=== PATIENT | female | born 1955 | race Native Hawaiian/Other Pacific Islander ===

== ENCOUNTER 2018-01-05 13:41 | Outpatient (CLI) | payer OTHER ==
[~2018-01-05 13:41] MED LIST: ADDERALL XR20 MG PO; AMBIEN CR12.5 M1 PO; CETIRIZINE10 MG PO; CLONAZEP ODT1 MG PO; LAMOTRIGINE200 MG PO; LOPRESSOR100 MG PO
== END 2018-01-05 20:02 | disposition home or self-care (01) ==
LOC: CT 13:41
DX: J01.91 Acute recurrent sinusitis, unspecified (principal)

== ENCOUNTER 2019-11-24 15:42 | Outpatient (CLI) | payer OTHER | END 2019-11-24 20:49 | disposition home or self-care (01) | LOC: CT 15:42 | DX: R59.9 Enlarged lymph nodes, unspecified (principal) ==

== ENCOUNTER 2019-12-22 11:33 | Outpatient (CLI) | payer OTHER | END 2019-12-22 19:19 | disposition home or self-care (01) | LOC: MAMMO 11:33 | DX: R06.02 Shortness of breath (principal); Z12.31 Encounter for screening mammogram for malignant neoplasm of breast ==

== ENCOUNTER 2021-01-03 09:03 | Outpatient (CLI) | payer OTHER ==
[2021-01-03 10:21] LABS: PLATELET COUNT 209 K/uL (152-353)
[2021-01-03 10:37] LABS: POTASSIUM 4.2 mmol/L (3.6-5.2)
== END 2021-01-03 22:35 | disposition home or self-care (01) ==
LOC: LABW 09:03
PROVIDERS: ATTEND Nurse Practitioner Family
DX: R10.9 Unspecified abdominal pain (principal); R11.0 Nausea; R11.10 Vomiting, unspecified; F41.9 Anxiety disorder, unspecified; F51.01 Primary insomnia; I10 Essential (primary) hypertension; K21.9 Gastro-esophageal reflux disease without esophagitis; G89.29 Other chronic pain; E03.9 Hypothyroidism, unspecified; E55.9 Vitamin D deficiency, unspecified
CPT/HCPCS: 36415; 80053; 80061; 82150; 82306; 82607; 83036; 83690; 84439; 84443; 85027; 86677

== ENCOUNTER 2022-03-17 17:39 | Emergency (ER) | payer OTHER ==
[~2022-03-17] VITALS: Ht 165.1 cm; Wt 88.5 kg
[2022-03-17 20:25] VITALS: BP 113/71; TEMP 98.9
== END 2022-03-17 20:25 | disposition home or self-care (01) ==
LOC: ED 17:39
PROC: 0HQLXZZ Repair Left Lower Leg Skin, External Approach (ICD-10-PCS; principal; 2022-03-17)
DX: S81.812A Laceration without foreign body, left lower leg, initial encounter (principal); W01.110A Fall on same level from slipping, tripping and stumbling with subsequent striking against sharp glass, initial encounter; Y92.89 Other specified places as the place of occurrence of the external cause
CPT/HCPCS: 90471; 90715; 99283; J2001

== ENCOUNTER 2022-03-29 16:55 | Emergency (ER) | payer OTHER ==
[~2022-03-29] VITALS: Ht 165.1 cm; Wt 90.7 kg
[2022-03-29 16:59] VITALS: BP 143/89; TEMP 99.2
== END 2022-03-29 18:19 | disposition home or self-care (01) ==
LOC: ED 16:55
DX: Z48.02 Encounter for removal of sutures (principal); J02.9 Acute pharyngitis, unspecified
CPT/HCPCS: 99281

== ENCOUNTER 2023-02-09 11:10 | Outpatient (CLI) | payer OTHER | END 2023-02-09 21:25 | disposition home or self-care (01) | LOC: RAD 11:10 | PROVIDERS: ATTEND Nurse Practitioner Family | DX: R05.1 Acute cough (principal) ==